=== PATIENT | female | born 1965 | race African-American/Black ===

== ENCOUNTER 2017-04-18 08:18 | Day surgery (SDC) | payer OTHER ==
[2017-04-18] MEDS ORDERED: Sodium Bicarbonate 2.5 MEQ/5 ML VIAL ONE (08:44)
[2017-04-18 08:52] LABS: INR-International Normal Ratio 1.2; Prothrombin Time 15.2 SEC (12.0-14.7)
[2017-04-18 08:59] LABS: Mean Corpuscular HGB CONC 31.8 g/dL (32.0-36.0); Mean Corpuscular Hemoglobin 25.5 pg (27.0-31.0); Mean Corpuscular Volume 80.2 fl (81.0-99.0); Mean Platelet Volume 9.7 fL (7.4-10.4); Platelet Count 107 thou/uL (130-400); RBC Distribution Width 13.9 % (11.5-14.5); Red Blood Cell (RBC) Count 4.33 mill/uL (4.20-5.40)
[2017-04-18 10:12] LABS: Eosinophils 1 % (0-10); Hypochromia SLIGHT = 6-15 cells (100X) (0-5/hpf); Lymphocytes 29 % (21-51); MDiff Complete? YES; Monocytes 11 % (0-10); Neutrophil 54 % (42-75); Ovalocytes MODERATE= 6-15 cells (100X) (0-1/hpf); PLT Morphology Comment Appears Decreased; Polychromasia SLIGHT = 2-3 cells (100X) (0-2/hpf); Reactive Lymphocytes 5 % (0-10)
[2017-04-18 11:16] VITALS: BP 139/94; TEMP 98.2; BMI 25.7
[2017-04-18 11:25] LABS: BF Color Yellow; Body Fluid Source Ascites Body Fluid; Clarity Hazy (Clear); RBC Background Count 0.005; Tube # EDTA; WBC/NonHematic-Auto 825 /cumm
[2017-04-18 11:26] LABS: BF RBC Count - Manual 5250 /cumm
[2017-04-18 12:00] LABS: BF Segmented Neutrophils 5 %; Cell Count Non Hematic 15 %; Lymphocytes 80 %
--- NOTE | 2017-04-18 13:34 | ULT ---
ULTRASOUND GUIDED PARACENTESIS: INDICATION: Ascites. TECHNIQUE: Informed consent was obtained. Preprocedure ultrasound demonstrated a prominent amount of intraperit piña fluid. A site overlying the right lower quadrant was marked. The site was prepped and draped in the usual sterile fashion. Buffered 1% Lidocaine was administered to the overlying subcutaneous t issues. Under ultrasound guidance, a 5 [place] Yueh catheter was guided down into the fluid collectio n in the right lower quadrant. Three liters of normal-appearing peritoneal fluid was removed. The f rubén was sent to the pathology department for further evaluation. The patient tolerated the procedur e without difficulty. IMPRESSION: Successful ultrasound-guided paracentesis. Removal of 3 L of normal-appearing peritoneal fluid. POS: [facility]
== END 2017-04-18 10:50 | disposition home or self-care (01) ==
LOC: ULT 08:18
PROVIDERS: ATTEND Internal Medicine
PROC: 0W9G3ZX Drainage of Peritoneal Cavity, Percutaneous Approach, Diagnostic (ICD-10-PCS; principal; 2017-04-18)
PROC: BW40ZZZ Ultrasonography of Abdomen (ICD-10-PCS; principal; 2017-04-18)
DX: R18.8 Other ascites (principal); I10 Essential (primary) hypertension; K76.9 Liver disease, unspecified; E05.00 Thyrotoxicosis with diffuse goiter without thyrotoxic crisis or storm; F17.210 Nicotine dependence, cigarettes, uncomplicated; Z79.899 Other long term (current) drug therapy
CPT/HCPCS: 49083; 82040; 82042; 84155; 85025; 85060; 85610; 85730; 89051